=== PATIENT | male | born 1995 | race Two or more races ===

== ENCOUNTER 2023-01-23 08:35 | Inpatient (IN) | payer MEDICAID, OTHER ==
[~2023-01-23] VITALS: Ht 185.4 cm; Wt 82.7 kg
[2023-01-23 08:56] LABS: Basophils # (auto) 0 10 ^3/uL (0-0.2); Hematocrit 35.5 % (41.0-53.0); Hemoglobin 12.2 g/dL (13.5-17.5); Lymphocytes # (auto) 1.2 10 ^3/uL (0.4-5.4); Monocytes # (auto) 0.3 10 ^3/uL (0-1.3); White Blood Cell 3.7 10^3/uL (4.4-10.8)
[2023-01-23 08:58] LABS: Basophils % (auto) 0.8 % (0.0-2.0); Eosinophils # (auto) 0.2 10 ^3/uL (0-0.8); Eosinophils % (auto) 4.1 % (0.0-7.0); Lymphocytes % (auto) 32.6 % (10.0-50.0); Mean Corpuscular Hemoglobin 30.4 pg (28.0-32.0); Mean Corpuscular Hgb Conc. 34.4 g/dL (32.0-36.0); Mean Corpuscular Volume 88.5 fL (80.0-100.0); Monocytes % (auto) 8.9 % (0.0-12.0); Neutrophils % (auto) 53.6 % (37.0-80.0); Nucleated Red Blood Cells % 0.2 %; Red Blood Cells 4.01 10^6/uL (4.5-5.90)
[2023-01-23] MEDS ORDERED: PANT40TA2 PO (09:32)
[2023-01-23 10:10] LABS: Urine Bacteria NONE SEEN /hpf (None Seen); Urine Blood Negative /uL (Negative); Urine Specific Gravity 1.013 (1.001-1.035); Urine WBC 1 /hpf (0 - 3)
[2023-01-23 10:13] LABS: Albumin 3.8 g/dL (3.4-5.0); Calcium 8.9 mg/dL (8.5-10.1); Potassium 3.9 mmol/L (3.5-5.1)
[2023-01-23 10:16] LABS: BUN/Creatinine Ratio 10.8 (10.0-20.0); Bilirubin, Total 0.9 mg/dL (0.2-1.0); Total Protein 8.9 g/dL (6.4-8.2)
[2023-01-23 10:30] LABS: Alcohol, Urine < 3.0 mg/dL (0-10); Amphetamine Screen, Urine NEGATIVE (NEGATIVE); Barbiturate Scree,Urine NEGATIVE (NEGATIVE); Benzodiazephine Screen, Urine NEGATIVE (NEGATIVE); Cannabinoid Screen, Urine POSITIVE (NEGATIVE); Cocaine Screen, Urine NEGATIVE (NEGATIVE)
[2023-01-23 10:37] LABS: Opiate Scree,Urine NEGATIVE (NEGATIVE); Phencyclidine Screen, Urine NEGATIVE (NEGATIVE)
[2023-01-23] MEDS ORDERED: PANTOPRAZOLE 40 MG/10 ML VIAL INJ IV ONE (14:30)
[2023-01-23] MEDS ORDERED: ONDANSETRON HCL 4 MG/2 ML VIAL IV PRN (14:30)
[2023-01-23] MEDS ORDERED: IOHEXOL 300 MG/ML 100ML BOTTLE IJ ONE (14:41)
[2023-01-23] MEDS ORDERED: FOLIC ACID 1 MG TAB PO ONE (14:45)
[2023-01-23] MEDS ORDERED: THIAMINE HCL 100 MG TAB PO ONE (14:45)
[2023-01-23] MEDS ORDERED: MULTIPLE VITAMIN TAB PO ONE (14:45)
[2023-01-23 15:13] LABS: Amylase 59 U/L (25-115); Cholesterol 95 mg/dL (< 200); Lipase 180 U/L (73-393)
[2023-01-23 15:15] LABS: HDL Cholesterol 22 mg/dL (40-59); LDL Cholesterol 67 mg/dL (< 100); Triglycerides 247 mg/dL (< 150)
[2023-01-23 15:27] LABS: INR 0.97 (0.9-1.15); Partial Thromboplastin Time 25.7 sec (24.6-33.4)
[2023-01-23] MEDS: SODIUM CHLORIDE 0.9% 1,000 ML IV SCH (15:35)
[2023-01-24] MEDS: SODIUM CHLORIDE 0.9% 1,000 ML IV SCH ×4 (00:25→14:23)
[2023-01-24 05:18] LABS: Mean Corpuscular Hemoglobin 30.9 pg (28.0-32.0); Red Blood Cells 3.42 10^6/uL (4.5-5.90); Red Cell Distribution Width 13.8 % (11.8-14.3)
[2023-01-24 05:19] LABS: Basophils # (auto) 0 10 ^3/uL (0-0.2); Basophils % (auto) 0.7 % (0.0-2.0); Eosinophils # (auto) 0.1 10 ^3/uL (0-0.8); Eosinophils % (auto) 4.2 % (0.0-7.0); Hematocrit 29.4 % (41.0-53.0); Hemoglobin 10.6 g/dL (13.5-17.5); Lymphocytes % (auto) 27.6 % (10.0-50.0); Mean Corpuscular Hgb Conc. 35.8 g/dL (32.0-36.0); Mean Corpuscular Volume 86.1 fL (80.0-100.0); Monocytes # (auto) 0.4 10 ^3/uL (0-1.3); Monocytes % (auto) 10.4 % (0.0-12.0); Neutrophils % (auto) 57.1 % (37.0-80.0); Nucleated Red Blood Cells % 0.1 %; White Blood Cell 3.5 10^3/uL (4.4-10.8)
[2023-01-24 05:20] LABS: Albumin 3.3 g/dL (3.4-5.0); Calcium 8.2 mg/dL (8.5-10.1); Potassium 3.5 mmol/L (3.5-5.1)
[2023-01-24 05:21] LABS: BUN/Creatinine Ratio 18.8 (10.0-20.0)
[2023-01-24 05:24] LABS: Bilirubin, Total 0.6 mg/dL (0.2-1.0); Total Protein 7.8 g/dL (6.4-8.2)
[2023-01-24 09:26] LABS: Hepatitis B Surface Antibody Negative (Negative)
[2023-01-24 10:05] LABS: Hepatitis A Total Antibody Positive (Negative)
[2023-01-24] MEDS: PANTOPRAZOLE 40 MG/10 ML VIAL INJ IV SCH (11:42)
[2023-01-24] MEDS: THIAMINE HCL 100 MG TAB PO SCH (11:43)
[2023-01-24] MEDS: MULTIPLE VITAMIN TAB PO SCH (11:43)
[2023-01-24] MEDS: FOLIC ACID 1 MG TAB PO SCH (11:43)
[2023-01-24 11:51] LABS: Hepatitis C Antibody Negative (Negative)
[2023-01-24] MEDS ORDERED: GADOTERATE MEG 10 MMOL/20ml INJ (0.5MMOL/ml) IV ONE (13:16)
[2023-01-24 22:26] VITALS: BP 105/64
[2023-01-25 05:49] VITALS: BP 112/70
[2023-01-25 05:59] LABS: Basophils # (auto) 0 10 ^3/uL (0-0.2); Basophils % (auto) 0.3 % (0.0-2.0); Eosinophils # (auto) 0.2 10 ^3/uL (0-0.8); Eosinophils % (auto) 4.1 % (0.0-7.0); Hematocrit 31.6 % (41.0-53.0); Hemoglobin 10.9 g/dL (13.5-17.5); Lymphocytes % (auto) 26.7 % (10.0-50.0); Mean Corpuscular Hgb Conc. 34.6 g/dL (32.0-36.0); Mean Corpuscular Volume 89.4 fL (80.0-100.0); Monocytes # (auto) 0.2 10 ^3/uL (0-1.3); Monocytes % (auto) 6.4 % (0.0-12.0); Neutrophils # (auto) 2.3 10 ^3/uL (1.6-8.6); Neutrophils % (auto) 62.5 % (37.0-80.0); Nucleated Red Blood Cells % 0.3 %; Red Blood Cells 3.53 10^6/uL (4.5-5.90); Red Cell Distribution Width 13.8 % (11.8-14.3); White Blood Cell 3.7 10^3/uL (4.4-10.8)
[2023-01-25 06:15] LABS: BUN/Creatinine Ratio 15.3 (10.0-20.0); Calcium 8.3 mg/dL (8.5-10.1); Potassium 3.4 mmol/L (3.5-5.1)
[2023-01-25 09:00] VITALS: BP 106/63
[2023-01-25] MEDS: FOLIC ACID 1 MG TAB PO SCH (10:14)
[2023-01-25] MEDS: PANTOPRAZOLE 40 MG/10 ML VIAL INJ IV SCH (10:14)
[2023-01-25] MEDS: MULTIPLE VITAMIN TAB PO SCH (10:14)
[2023-01-25] MEDS: THIAMINE HCL 100 MG TAB PO SCH (10:14)
[2023-01-25 13:00] VITALS: BP 110/73
[2023-01-25] MEDS ORDERED: LORazepam 2MG/ML-1ML VIAL IV PRN (15:00)
[2023-01-25 16:56] VITALS: BP 109/71
[2023-01-25] MEDS: POTASSIUM CHLORIDE 40 MEQ in SOD CHL 0.45% 1,000 ML IV SCH (19:36)
[2023-01-25 22:00] VITALS: BP 88/55
[2023-01-26] MEDS: POTASSIUM CHLORIDE 40 MEQ in SOD CHL 0.45% 1,000 ML IV SCH ×2 (01:12→12:35)
[2023-01-26 04:56] VITALS: BP 112/70
[2023-01-26 09:00] VITALS: BP 111/71
[2023-01-26] MEDS: PANTOPRAZOLE 40 MG/10 ML VIAL INJ IV SCH (09:34)
[2023-01-26] MEDS: FOLIC ACID 1 MG TAB PO SCH (09:36)
[2023-01-26] MEDS: THIAMINE HCL 100 MG TAB PO SCH (09:37)
[2023-01-26] MEDS: MULTIPLE VITAMIN TAB PO SCH (09:37)
[2023-01-26] MEDS ORDERED: MIDAZOLAM HCL 2MG/2ML 2ml VIAL (1mg/ml) IV ONE (10:15)
[2023-01-26] MEDS ORDERED: fentaNYL CITRATE 100 MCG/2 ML VL IV ONE (10:15)
[2023-01-26] MEDS ORDERED: THIA100T10 PO (10:20)
[2023-01-26] MEDS ORDERED: PANT40TA2 PO (10:20)
[2023-01-26] MEDS ORDERED: SUCR1TAB22 OR (10:20)
[2023-01-26] MEDS ORDERED: MULTTAB99 PO (10:20)
[2023-01-26 13:00] VITALS: BP 113/66
== END 2023-01-26 14:45 | disposition home or self-care (01) | DRG 241 ==
LOC: ER 08:35 → OVERFLOW 14:31 → WEST WING 01-24 21:40
PROVIDERS: ADMIT Registered Nurse; ATTEND Nurse Practitioner Acute Care
DX: K29.70 Gastritis, unspecified, without bleeding (principal); D61.818 Other pancytopenia; B19.10 Unspecified viral hepatitis B without hepatic coma; K76.89 Other specified diseases of liver; R16.0 Hepatomegaly, not elsewhere classified; K20.90 Esophagitis, unspecified without bleeding; F10.239 Alcohol dependence with withdrawal, unspecified; F12.90 Cannabis use, unspecified, uncomplicated; Z20.822 Contact with and (suspected) exposure to COVID-19; K27.9 Peptic ulcer, site unspecified, unspecified as acute or chronic, without hemorrhage or perforation; F17.210 Nicotine dependence, cigarettes, uncomplicated; Z83.3 Family history of diabetes mellitus; Z79.899 Other long term (current) drug therapy
CPT/HCPCS: 10005; 36415; 71260; 72192; 74177; 74181; 74183; 76705; 77012; 80048; 80053; 80061; 80307; 80320; 81001; 82105; 82150; 82378; 82607; 82962; 82977; 83036; 83615; 83690; 83735; 84436; 84443; 84484; 85025; 85610; 85730; 86301; 86304; 86701; 86703; 86704; 86706; 86708; 86803; 87340; 87426; 93005; 96374; C9113; G0378; J2250; J2405

== ENCOUNTER 2024-07-18 10:42 | Inpatient (IN) | payer MEDICAID ==
[~2024-07-18] VITALS: Ht 185.4 cm; Wt 93.8 kg
[~2024-07-18 10:42] MED LIST: MULTTAB99 PO; PANT40TA2 PO; SUCR1TAB31 OR; THIA100T10 PO
[2024-07-18 12:04] LABS: Basophils # (auto) 0 10 ^3/uL (0-0.2); Eosinophils # (auto) 0.1 10 ^3/uL (0-0.8); Monocytes # (auto) 0.4 10 ^3/uL (0-1.3)
[2024-07-18 12:06] LABS: Basophils % (auto) 0.4 % (0.0-2.0); Eosinophils % (auto) 1.9 % (0.0-7.0); Hematocrit 41.9 % (41.0-53.0); Hemoglobin 14.7 g/dL (13.5-17.5); Lymphocytes # (auto) 1.7 10 ^3/uL (0.4-5.4); Lymphocytes % (auto) 24.4 % (10.0-50.0); Mean Corpuscular Hemoglobin 31.1 pg (28.0-32.0); Mean Corpuscular Hgb Conc. 35.1 g/dL (32.0-36.0); Mean Corpuscular Volume 88.6 fL (80.0-100.0); Monocytes % (auto) 6.4 % (0.0-12.0); Neutrophils # (auto) 4.7 10 ^3/uL (1.6-8.6); Neutrophils % (auto) 66.9 % (37.0-80.0); Nucleated Red Blood Cells % 0.1 %; Red Blood Cells 4.73 10^6/uL (4.5-5.90); Red Cell Distribution Width 14.4 % (11.8-14.3)
[2024-07-18 12:16] LABS: INR 1.04 (0.9-1.15); Partial Thromboplastin Time 27.1 SEC (24.5-34.5)
[2024-07-18 12:17] LABS: Alanine Aminotransferase 29 U/L (7-40); Alkaline Phosphatase 171 U/L (46-116); Anion Gap 6 (5-15); Aspartate Aminotransferase 13 U/L (13-40); BUN/Creatinine Ratio 11.2 (10.0-20.0); Bilirubin, Total 1.5 mg/dL (0.2-1.0); Blood Urea Nitrogen 12 mg/dL (9-23); Calcium 9.7 mg/dL (8.7-10.4); Carbon Dioxide 25 mmol/L (20-31); Chloride 109 mmol/L (98-107); Glucose 94 mg/dL (74-106); Sodium 140 mmol/L (136-145)
[2024-07-18 13:06] LABS: Platelet Count (auto) 15 10^3/uL (140-450); Platelet Estimate Marked
[2024-07-18] MEDS ORDERED: MORPHINE SULFATE INJ 2 MG/ml SYRG IV PRN (18:45)
[2024-07-18] MEDS ORDERED: DOCUSATE SOD 100 MG CAP PO PRN (18:45)
[2024-07-18] MEDS ORDERED: NITROGLYCERIN 0.4 MG SL TAB SL PRN (18:45)
[2024-07-18] MEDS ORDERED: ONDANSETRON HCL 4 MG/2 ML VIAL IV PRN (18:45)
[2024-07-18 22:00] VITALS: PULSE 70; RESP 12; O2SAT 99
[2024-07-18 22:44] VITALS: BP 124/78; PULSE 63; RESP 16; TEMP 98.9; O2SAT 98
[2024-07-19] VITALS (8 sets, daily range): BP systolic 109–171; BP diastolic 61–73; PULSE 34–59; RESP 16–18; TEMP 97.8–98.6; O2SAT 90–100
[2024-07-19 00:40] LABS: Urine Bacteria None Seen /hpf (None Seen)
[2024-07-19 01:38] LABS: Urine Blood Negative /uL (Negative); Urine Clarity Clear (Clear); Urine Color Yellow (Yellow); Urine Mucus FEW (None Seen); Urine Protein, UAD TRACE (Negative); Urine Specific Gravity 1.037 (1.001-1.035); Urine Urobilinogen 2 mg/dL (Negative); Urine WBC <1 /hpf (0 - 3); Urine pH 5.5 (5.0-9.0)
[2024-07-19 06:12] LABS: Basophils # (auto) 0 10 ^3/uL (0-0.2); Basophils % (auto) 0.7 % (0.0-2.0); Eosinophils # (auto) 0.3 10 ^3/uL (0-0.8); Hematocrit 41.7 % (41.0-53.0); Hemoglobin 14.5 g/dL (13.5-17.5); Mean Corpuscular Hemoglobin 31.1 pg (28.0-32.0); Mean Corpuscular Hgb Conc. 34.8 g/dL (32.0-36.0); Monocytes # (auto) 0.5 10 ^3/uL (0-1.3); Neutrophils % (auto) 60.9 % (37.0-80.0); White Blood Cell 5.5 10^3/uL (4.4-10.8)
[2024-07-19 06:17] LABS: Eosinophils % (auto) 4.7 % (0.0-7.0); Lymphocytes # (auto) 1.4 10 ^3/uL (0.4-5.4); Lymphocytes % (auto) 24.8 % (10.0-50.0); Mean Corpuscular Volume 89.4 fL (80.0-100.0); Monocytes % (auto) 8.9 % (0.0-12.0); Neutrophils # (auto) 3.4 10 ^3/uL (1.6-8.6); Nucleated Red Blood Cells % 0.1 %; Red Blood Cells 4.66 10^6/uL (4.5-5.90); Red Cell Distribution Width 14.5 % (11.8-14.3)
[2024-07-19 06:26] LABS: Alanine Aminotransferase 23 U/L (7-40); Albumin 4.7 g/dL (3.2-4.8); Alkaline Phosphatase 151 U/L (46-116); Anion Gap 7 (5-15); Aspartate Aminotransferase 13 U/L (13-40); BUN/Creatinine Ratio 10.4 (10.0-20.0); Bilirubin, Total 1.3 mg/dL (0.2-1.0); Blood Urea Nitrogen 10 mg/dL (9-23); Calcium 9.6 mg/dL (8.7-10.4); Carbon Dioxide 22 mmol/L (20-31); Chloride 111 mmol/L (98-107); Glucose 96 mg/dL (74-106); Potassium 3.9 mmol/L (3.5-5.1); Sodium 140 mmol/L (136-145); Total Protein 7.5 g/dL (5.7-8.2)
[2024-07-19 07:33] LABS: Platelet Estimate Markedly Decreased; RBC Morphology Normal
[2024-07-19 07:51] LABS: Platelet Count (auto) 6 10^3/uL (140-450)
[2024-07-19] MEDS ORDERED: FLUO-470 PO (07:57)
[2024-07-19] MEDS ORDERED: BICT1TAB PO (07:57)
[2024-07-19] MEDS ORDERED: MIRT1TAB38 PO (07:57)
[2024-07-19] MEDS ORDERED: RISP1TAB63 PO (07:57)
[2024-07-19] MEDS ORDERED: SUCR1TAB PO (07:57)
[2024-07-19] MEDS ORDERED: PANT40T PO (07:57)
[2024-07-19] MEDS: methylPREDNISolone SOD SUCC 125 MG/2 ML VL IV SCH (15:20)
[2024-07-19] MEDS: PANTOPRAZOLE 40 MG TAB PO ONE (18:01)
[2024-07-20] VITALS (7 sets, daily range): BP systolic 120–135; BP diastolic 68–79; PULSE 61–74; RESP 17–19; TEMP 97.4–98.7; O2SAT 97–100
[2024-07-20] MEDS: PANTOPRAZOLE 40 MG TAB PO SCH (06:02)
[2024-07-20 07:19] LABS: Basophils # (auto) 0 10 ^3/uL (0-0.2); Eosinophils # (auto) 0 10 ^3/uL (0-0.8); Hemoglobin 15.8 g/dL (13.5-17.5); Lymphocytes # (auto) 0.9 10 ^3/uL (0.4-5.4); Monocytes # (auto) 0.1 10 ^3/uL (0-1.3); Red Cell Distribution Width 14.3 % (11.8-14.3)
[2024-07-20 07:24] LABS: Hematocrit 44.7 % (41.0-53.0); Lymphocytes % (auto) 9.7 % (10.0-50.0); Mean Corpuscular Hemoglobin 31.1 pg (28.0-32.0); Mean Corpuscular Hgb Conc. 35.2 g/dL (32.0-36.0); Mean Corpuscular Volume 88.4 fL (80.0-100.0); Neutrophils # (auto) 8.2 10 ^3/uL (1.6-8.6); Neutrophils % (auto) 89.3 % (37.0-80.0); Nucleated Red Blood Cells % 0.1 %; Red Blood Cells 5.06 10^6/uL (4.5-5.90); White Blood Cell 9.2 10^3/uL (4.4-10.8)
[2024-07-20 07:34] LABS: Platelet Count (auto) 14 10^3/uL (140-450)
[2024-07-20 09:19] LABS: Platelet Estimate Markedly Decreased; RBC Morphology Normal
[2024-07-20] MEDS ORDERED: TRAZ-227 PO (15:40)
[2024-07-20] MEDS: FLUoxetine HCL 20 MG CAP PO ONE (18:35)
[2024-07-20] MEDS: traZODone HCL 50 MG TAB PO SCH (22:58)
[2024-07-20] MEDS: MIRTAZAPINE 30 MG TAB PO SCH (22:58)
[2024-07-21] VITALS (7 sets, daily range): BP systolic 116–134; BP diastolic 62–84; PULSE 62–78; RESP 14–18; TEMP 97.6–98.7; O2SAT 96–100
[2024-07-21 07:33] LABS: Basophils # (auto) 0 10 ^3/uL (0-0.2); Eosinophils # (auto) 0 10 ^3/uL (0-0.8); Hematocrit 42.9 % (41.0-53.0); Hemoglobin 14.9 g/dL (13.5-17.5); Lymphocytes # (auto) 0.9 10 ^3/uL (0.4-5.4); Mean Corpuscular Hemoglobin 30.9 pg (28.0-32.0); Mean Corpuscular Hgb Conc. 34.6 g/dL (32.0-36.0); Mean Corpuscular Volume 89.1 fL (80.0-100.0); Monocytes # (auto) 0.3 10 ^3/uL (0-1.3); Monocytes % (auto) 2.2 % (0.0-12.0); Neutrophils # (auto) 13.5 10 ^3/uL (1.6-8.6); Neutrophils % (auto) 91.8 % (37.0-80.0); Nucleated Red Blood Cells % 0.1 %; Platelet Count (auto) 60 10^3/uL (140-450); Red Blood Cells 4.82 10^6/uL (4.5-5.90); Red Cell Distribution Width 14.5 % (11.8-14.3); White Blood Cell 14.7 10^3/uL (4.4-10.8)
[2024-07-21 10:07] LABS: Anti-Nuclear Antibody Direct Negative (Negative)
[2024-07-21] MEDS: FLUoxetine HCL 20 MG CAP PO SCH (10:17)
[2024-07-22 05:00] VITALS: BP 121/73; PULSE 57; RESP 18; TEMP 97.4; O2SAT 99
[2024-07-22 07:59] LABS: Basophils # (auto) 0 10 ^3/uL (0-0.2); Basophils % (auto) 0.1 % (0.0-2.0); Eosinophils # (auto) 0 10 ^3/uL (0-0.8); Eosinophils % (auto) 0.1 % (0.0-7.0); Hematocrit 45.1 % (41.0-53.0); Lymphocytes # (auto) 0.7 10 ^3/uL (0.4-5.4); Lymphocytes % (auto) 6.3 % (10.0-50.0); Mean Corpuscular Hemoglobin 29.9 pg (28.0-32.0); Mean Corpuscular Hgb Conc. 33.3 g/dL (32.0-36.0); Mean Corpuscular Volume 89.7 fL (80.0-100.0); Monocytes # (auto) 0.4 10 ^3/uL (0-1.3); Monocytes % (auto) 3.5 % (0.0-12.0); Neutrophils # (auto) 10.7 10 ^3/uL (1.6-8.6); Nucleated Red Blood Cells % 0.1 %; Platelet Count (auto) 110 10^3/uL (140-450); Red Blood Cells 5.03 10^6/uL (4.5-5.90); Red Cell Distribution Width 14.7 % (11.8-14.3); White Blood Cell 11.8 10^3/uL (4.4-10.8)
[2024-07-22 09:00] VITALS: BP 137/74; PULSE 58; RESP 20; TEMP 97.5; O2SAT 100
[2024-07-22 13:00] VITALS: BP 136/69; PULSE 68; RESP 18; TEMP 98.6; O2SAT 98
[2024-07-22] MEDS: predniSONE 20 MG TAB PO SCH (14:20)
[2024-07-22 16:50] VITALS: BP 114/69; PULSE 62; RESP 20; TEMP 98.2; O2SAT 96
[2024-07-22 22:00] VITALS: BP 133/65; PULSE 58; RESP 15; TEMP 98; O2SAT 98
[2024-07-23 01:00] VITALS: BP 106/65; PULSE 46; RESP 15; TEMP 97.5; O2SAT 99
[2024-07-23 05:00] VITALS: BP 123/77; PULSE 53; RESP 15; TEMP 97.8; O2SAT 100
[2024-07-23 07:25] LABS: Basophils # (auto) 0 10 ^3/uL (0-0.2); Basophils % (auto) 0.1 % (0.0-2.0); Eosinophils # (auto) 0 10 ^3/uL (0-0.8); Hematocrit 41.2 % (41.0-53.0); Hemoglobin 14.2 g/dL (13.5-17.5); Lymphocytes # (auto) 0.8 10 ^3/uL (0.4-5.4); Lymphocytes % (auto) 8.8 % (10.0-50.0); Mean Corpuscular Hemoglobin 30.9 pg (28.0-32.0); Mean Corpuscular Hgb Conc. 34.4 g/dL (32.0-36.0); Mean Corpuscular Volume 89.9 fL (80.0-100.0); Monocytes # (auto) 0.7 10 ^3/uL (0-1.3); Monocytes % (auto) 7.3 % (0.0-12.0); Neutrophils # (auto) 7.7 10 ^3/uL (1.6-8.6); Neutrophils % (auto) 83.8 % (37.0-80.0); Platelet Count (auto) 125 10^3/uL (140-450); Red Blood Cells 4.58 10^6/uL (4.5-5.90); Red Cell Distribution Width 14.7 % (11.8-14.3); White Blood Cell 9.2 10^3/uL (4.4-10.8)
[2024-07-23 07:40] VITALS: PULSE 62; RESP 16; O2SAT 100
[2024-07-23 09:00] VITALS: BP 140/74; PULSE 62; RESP 16; TEMP 97.4; O2SAT 100
[2024-07-23] MEDS ORDERED: PRED20TA2 PO (09:25)
[2024-07-23 10:10] VITALS: BP 140/74; PULSE 62; RESP 16; TEMP 97.4; O2SAT 100
[2024-07-23 16:06] LABS: Dilute Prothrombin Time(dPT) 39.8 sec (0.0-47.6); PTT-LA 37.1 sec (0.0-43.5); dPT Confirm Ratio 1.14 Ratio (0.00-1.34); dRVVT 35.9 sec (0.0-47.0)
[2024-07-23 17:06] LABS: Lupus Interpretation Comment: (.)
== END 2024-07-23 11:44 | disposition home or self-care (01) | DRG 892 ==
LOC: ER 10:42 → WEST WING 18:35 → OVERFLOW 18:59 → WEST WING 18:59
PROVIDERS: ADMIT Student in an Organized Health Care Education/Training Program; ATTEND Student in an Organized Health Care Education/Training Program
DX: D69.3 Immune thrombocytopenic purpura (principal); B20 Human immunodeficiency virus [HIV] disease; K74.60 Unspecified cirrhosis of liver; E86.9 Volume depletion, unspecified; F17.210 Nicotine dependence, cigarettes, uncomplicated; Z83.3 Family history of diabetes mellitus
CPT/HCPCS: 36415; 80053; 81001; 83615; 85025; 85610; 85613; 85670; 85705; 85730; 85732; 86038; 86147; 86850; 86900; 86901; G0378